=== PATIENT | female | born 1955 | race Caucasian/White ===

== ENCOUNTER 2025-04-12 11:56 | Emergency (ER) | payer MEDICARE, BC ==
[~2025-04-12] VITALS: Ht 157.5 cm; Wt 68.0 kg
[2025-04-12] MEDS ORDERED: ACETAMINOPHEN 500 MG TABLET ONE (13:25)
[2025-04-12] MEDS ORDERED: IBUPROFEN 400 MG TABLET ONE (13:25)
[2025-04-12] MEDS: IBUPROFEN 400 MG TABLET PO ONE (13:29)
[2025-04-12] MEDS: ACETAMINOPHEN 500 MG TABLET PO ONE (13:29)
[2025-04-12] MEDS ORDERED: LIDOCAINE 5% PATCH TD ONE (14:06)
[2025-04-12] MEDS: LIDOCAINE 5% PATCH TD ONE (14:12)
[2025-04-12] MEDS ORDERED: LIDO30AD10 TP (14:28)
[2025-04-12 14:42] VITALS: BP 120/75; O2SAT 98
== END 2025-04-12 14:43 | disposition home or self-care (01) ==
LOC: ER 11:56
DX: S80.01XA Contusion of right knee, initial encounter (principal); S70.02XA Contusion of left hip, initial encounter; E78.5 Hyperlipidemia, unspecified; I10 Essential (primary) hypertension; Z88.0 Allergy status to penicillin; W22.8XXA Striking against or struck by other objects, initial encounter; Y93.89 Activity, other specified; Y92.89 Other specified places as the place of occurrence of the external cause; Y99.8 Other external cause status
CPT/HCPCS: 72170; 73562; A4606; A4663; A9150

== ENCOUNTER 2025-06-13 10:37 | Emergency (ER) | payer MEDICARE, BC ==
[~2025-06-13] VITALS: Ht 157.5 cm; Wt 68.9 kg
[~2025-06-13 10:37] MED LIST: LIDO30AD10 TP
[2025-06-13 10:52] VITALS: BP 136/75
[2025-06-13] MEDS ORDERED: SWABABLE VALVE TRANSFER SET EA MC ONE ×2 (12:25)
[2025-06-13] MEDS ORDERED: IOHEXOL 350 100 ML INFUS..BTL ONE (12:25)
[2025-06-13] MEDS ORDERED: IV NORMAL SALINE 250 ML IV ONE (12:25)
[2025-06-13 12:30] LABS: PLATELET COUNT (AUTO) 172 K/uL (179-408); RED BLOOD CELL COUNT(AUTO) 4.79 MIL/uL (3.63-4.92); RED CELL DISTRIBUTION WIDTH 13.6 % (12.3-17.7); WHITE BLOOD COUNT (AUTO) 5.0 K/uL (3.8-11.8)
[2025-06-13 12:32] LABS: CREATININE 0.6 mg/dL (0.6-1.3); SODIUM SERUM 147 mmol/L (136-145); UREA NITROGEN, BLOOD 11 mg/dL (7-18)
[2025-06-13 12:38] LABS: ASPARTATE AMINOTRANSFERASE 7 U/L (15-37); TOTAL PROTEIN, SERUM 6.9 g/dL (6.4-8.2)
[2025-06-13] MEDS ORDERED: ASPIRIN 325 MG TABLET ONE (13:02)
[2025-06-13] MEDS: ASPIRIN 325 MG TABLET PO ONE (13:07)
[2025-06-13 14:32] VITALS: BP 136/75; O2SAT 95
== END 2025-06-13 14:43 | disposition left against medical advice (07) ==
LOC: ER 10:37
DX: S00.03XA Contusion of scalp, initial encounter (principal); I63.9 Cerebral infarction, unspecified; E78.5 Hyperlipidemia, unspecified; I10 Essential (primary) hypertension; R42 Dizziness and giddiness; R51.9 Headache, unspecified; R53.1 Weakness; Z79.82 Long term (current) use of aspirin; Z88.0 Allergy status to penicillin; W01.0XXA Fall on same level from slipping, tripping and stumbling without subsequent striking against object, initial encounter; Y93.89 Activity, other specified; Y92.89 Other specified places as the place of occurrence of the external cause; Y99.8 Other external cause status
CPT/HCPCS: 99285; 70496; 80076; 80048; 82962; 85025; 85730; 86850; 86900; 86901; 84484; 70498; 93005; 70450; Q9967; A4606; A4663